=== PATIENT | female | born 1990 | race Caucasian/White ===

== ENCOUNTER 2023-12-16 20:53 | Emergency (ER) | payer MEDICAID ==
[~2023-12-16] VITALS: Ht 152.4 cm; Wt 76.4 kg
[2023-12-16 21:03] VITALS: BP 126/74; PULSE 93; RESP 16; TEMP 98.4
[2023-12-16 21:17] LABS: COVID AG,FIA SOURCE NASAL SWAB
[2023-12-16 21:29] LABS: INFLUENZA TYPE A NEGATIVE FOR TYPE A (NEGATIVE); INFLUENZA TYPE B NEGATIVE FOR TYPE B (NEGATIVE); SARS-COV2 (COVID) ANTIGEN,FIA Negative (Negative)
[2023-12-16] MEDS ORDERED: AMOX1TAB16 PO (21:55)
[2023-12-16] MEDS: AMOX TR/POT CLAV 875 MG/125 MG TABLET PO ONE (21:57)
== END 2023-12-16 22:14 | disposition home or self-care (01) ==
LOC: EMS 20:53
DX: H66.93 Otitis media, unspecified, bilateral (principal); Z20.822 Contact with and (suspected) exposure to COVID-19
CPT/HCPCS: 87804; 99283